=== PATIENT | female | born 1960 | race Two or more races ===

== ENCOUNTER 2019-11-20 19:40 | Inpatient (IN) | payer BC ==
--- NOTE | 2019-11-20 19:44 | PDOC ---
History of Present Illness - General Chief Complaint: Pain Stated Complaint: TWISTED ANKLE WHILE HIKING Time Seen by Provider: 11/20/19 19:43 - History of Present Illness Initial Comments: This 59-year-old woman with a history of HLD/hypothyroidism presents with right ankle injury. Approximately 2 hours prior to presentation, she slipped while hiking down a hill twisting her right ankle. After this, she has had swelling and marked pain in the right ankle on weightbearing. No previous history of injury or other issue in the right ankle. Patient denies any other complaints. The patient took 400 mg ibuprofen prior to presentation in the ER. She denies paresthesias/numbness in right lower extremity. Patient and her live in [facility] ([facility] They are visiting the area to see their daughter who is third-year medical student Medications as noted below No known allergies Non-smoker/no daily alcohol or other recreational drug use Past History - Medical History Allergies/Adverse Reactions: Allergies Allergy/AdvReac Type Severity Reaction Status Date / Time No Known Allergies Allergy Unverified 11/20/19 19:45 Home Medications: Ambulatory Orders Levothyroxine [Synthroid -] 100 mcg PO DAILY 11/20/19 Review of Systems - Review of Systems Able to Perform ROS?: Yes Comments:: 12 point review of systems is negative except for what is noted in the history of present illness *Physical Exam - Physical Exam GENERAL: Adult female, alert and oriented x3, in mild distress secondary to right ankle pain HEAD: Normal with no signs of trauma. EYES: PERRLA, EOMI, sclera anicteric, conjunctiva clear. ENT: Ears normal, nares patent, oropharynx clear without exudates. Moist mucous membranes. NECK: Normal range of motion, supple without lymphadenopathy, JVD, or masses. LUNGS: Breath sounds equal, clear to auscultation bilaterally. No wheezes, and no crackles. HEART:Regular rate and rhythm, normal S1 and S2 without murmur, rub or gallop. ABDOMEN:.normal bowel sounds No guarding,tenderness or rebound.No masses No distention. EXTREMITIES: Right lower extremityankle: Moderate edema bilateral malleoli with faint ecchymosis distal to the medial malleolus Moderate generalized tenderness of bilateral malleoli No knee, lower leg or foot edema, tenderness or deformity; motor and sensory functioning of foot intact Strongly palpable dorsalis pedis pulse palpable at midfoot Remainder of the extremity exam is normal NEUROLOGICAL: Cranial nerves II through XII grossly intact. Normal speech. No focal neurological deficits. ED Treatment Course - LABORATORY CBC & Chemistry Diagram: 11/20/19 23:44 11/20/19 23:26 Medical Decision Making - Medical Decision Making 11/20/19 21:41 Right ankle x-ray performed. Preliminary interpretation by Imaging automation control technician (Dr. Torres): Trimalleolar fracture with minimally displaced intra-articular fracture of the medial malleolus, mildly displaced spiral fracture of the distal fibula above the level of the ankle mortise and a minimally displaced intra-articular fracture of the posterior distal tibia consistent with a trimalleolar fracture. There is moderate ankle edema Case discussed with Dr. Plata on-call for orthopedic surgery by telephone Dr. Plata also discussed options for treatment by telephone with patient's hus band and her daughter 11/21/19 00:31 The patient has elected to be admitted. Although ORIF surgery is tentatively planned for tomorrow at [facility], there are no available beds there. Therefore, the patient will be admitted to [facility] for pain control and further care. [facility] discussed with [facility]. He will admit patient [facility] bed here at [facility]. Twelve-lead electrocardiogram performed: Preliminary interpretation by menormal sinus rhythm at 83 bpm; there is left axis deviation and mild left atrial enlargement; no acute ST or T wave abnormality; intervals and waveforms are otherwise normal. No evidence of acute cardiac arrhythmia Laboratory evaluation (CBC/chemistry profile/INR) are essentially normal Ortho-Glass splint applied: Posterior leg splint followed by sugar tong splint applied to right lower leg and attached with Josh wraps. Neurovascular fu nctioning intact after placement of splint. Ice bag applied to anterior ankle and lower leg elevated Patient transported in stable condition to the admission bed Discharge - Discharge Information Problems reviewed: Yes Clinical Impression/Diagnosis: Trimalleolar fracture of ankle, closed Qualifiers: Encounter type: initial encounter Laterality: right Qualified Code(s): S82.851A - Displaced trimalleolar fracture of right lower leg, initial encounter for closed fracture Condition: Stable - Admission Yes - Follow up/Referral - Patient Discharge Instructions - Post Discharge Activity
--- OUTSIDE RECORDS SUMMARY | 2019-11-20 20:02 | XMS ---
:1960 Author Organization [facility] Support Name Relationship Address Phone [facility] Unavailable [address] [place] [address] MARIELY GOLDSTEIN [address], [place] [address] Re-disclosure Warning The records that you are about to access may contain information from federally- assisted alcohol or drug abuse programs. If such information is present, then the following federally mandated warning applies: This information has been disclosed to you from records protected by federal confidentiality rules (42 CFR part 2). The federal rules prohibit you from making any further disclosure of this information unless further disclosure is expressly permitted by the written consent of the person to whom it pertains or as otherwise permitted by 42 CFR part 2. A general authorization for the release of medical or other information is NOT sufficient for this purpose. The Federal rules restrict any use of the information to criminally investigate or prosecute any alcohol or drug abuse patient.The records that you are about to access may contain highly sensitive health information, the redisclosure of which is protected by Article 27-F of the [facility] Public Health law. If you continue you may haveaccess to information: Regarding HIV / AIDS; Provided by facilities licensed or operated by the [facility] Office of Mental Health; or Provided by the [facility] Office for People With Developmental Disabilities. If such information is present, then the following [facility] mandated warning applies: This information has been disclosed to you from confidential records which are protected by state law. State law prohibits you from making any further disclosure of this information without the specific written consent of the person to whom it pertains, or as otherwise permitted by law. Any unauthorized further disclosure in violation of state law may result in a fine or longterm sentence or both. A general authorization for the release of medical or other information is NOT sufficient authorization for further disclosure. Insurance Providers Payer name Policy type Policy ID Covered Covered green party's Policy P sarah beth / Coverage green party ID relationship to Sims Inf ormation type sims SELF PAY SP INSURANCE
[2019-11-20] MEDS ORDERED: ONDANSETRON 4 MG/2 ML VIAL IVPUSH PRN (23:39)
[2019-11-20] MEDS ORDERED: ACETAMINOPHEN 500 MG TABLET (FP) PO PRN (23:39)
[2019-11-20] MEDS ORDERED: oxyCODONE HCL 5 MG TABLET PO PRN (23:39)
--- NOTE | 2019-11-20 23:42 | HP ---
CHIEF COMPLAINT: Ankle Pain PCP: HISTORY OF PRESENT ILLNESS: 59 yo f w/ PMH HLD, hypothyroidism who presentes to the ED c/o right ankle pain after slipping while hiking. Pt slipped while hiking down a hill and twisted her right ankle. Pt endorsed swelling and marked pain after the injury with minimal weight bearing capabilities. Pt denies paresthesias or numbness. Patient and her live [facility] They are visiting the area to see their daughter who is third-year medical student. XR in the ED showed a malleolar fracture. Dr. Plata was consulted from the ED and is aware of the patient. He will assess the patient in the AM for potential surgery. Recent Travel: PAST MEDICAL HISTORY: see HPI PAST SURGICAL HISTORY: see HPI Social History: Smoking: denies Alcohol: denies Drugs: denies Allergies No Known Allergies Allergy (Unverified 11/20/19 19:45) HOME MEDICATIONS: Home Medications Medication Instructions Recorded Levothyroxine [Synthroid -] 100 mcg PO DAILY 11/20/19 REVIEW OF SYSTEMS negative except for HPI PHYSICAL EXAMINATION Vital Signs - 24 hr 11/20/19 19:43 Temperature 99.5 F Pulse Rate 86 Respiratory 16 Rate Blood Pressure 128/70 O2 Sat by Pulse 100 Oximetry (%) ASSESSMENT/PLAN: 59 yo f w/ PMH HLD, hypothyroidism who presentes to the ED c/o right ankle pain after slipping while hiking. Pt slipped while hiking down a hill and twisted her right ankle. #right malleolar fx -ortho onboard, will assess in AM -ankle splinted in the ED -pain control with tylenol, oxycodone and morphine -avoid nsaids -NPO past midnight in the event of surgery Family Medical History Family History: Denies Visit type - Emergency Visit Emergency Visit: Yes ED Registration Date: 11/21/19 Care time: The patient presented to the Emergency Department on the above date and was hospitalized for further evaluation of their emergent condition. - New Patient This patient is new to me today: Yes Date on this admission: 11/21/19 - Critical Care Critical Care patient: No
[2019-11-20] MEDS ORDERED: SODIUM CHLORIDE 1,000 ML IV SCH (23:45)
[2019-11-20 23:48] LABS: BASO % 0.6 % (0-2.0); HEMATOCRIT 38.9 % (32.4-45.2); HEMOGLOBIN 12.8 GM/dl (10.7-15.3); LYMPH % 17.9 % (8-40); MCH 31.1 pg (25.7-33.7); MCHC 32.9 g/dl (32.0-36.0); MEAN CELL VOLUME 94.5 fl (80-96); MEAN PLT VOLUME 7.8 fl (7.5-11.1); MONO % 6.9 % (3.8-10.2); NEUT % 73.6 % (42.8-82.8); PLATELET COUNT 325 K/MM3 (134-434); RBC 4.12 M/mm3 (3.60-5.2); RDW 12.1 % (11.6-15.6); WHITE BLOOD COUNT 7.7 K/mm3 (4.0-10.8)
[2019-11-21 00:12] LABS: BILIRUBIN,TOTAL 0.7 mg/dl (0.2-1); CALCIUM 9.2 mg/dl (8.5-10); CREATININE 0.7 mg/dl (0.55-1.3); POTASSIUM 3.6 mmol/L (3.5-5.1); TOT PROT 7.5 g/dl (6.4-8.2)
[2019-11-21 00:18] LABS: INR 1.1 (0.82-1.09); PROTHROMBIN TIME (PATIENT) 12.3 SEC (10.2-13.0)
[2019-11-21 01:28] VITALS: BMI 27.8
[2019-11-21] MEDS: MORPHINE SULFATE 2 MG/ML VIAL IVPUSH PRN ×3 (03:13→13:37)
[2019-11-21] MEDS ORDERED: LEVOTHYROXINE NA 100 MCG TABLET (FP) PO SCH (07:00)
[2019-11-21 08:10] LABS: HEMOGLOBIN 11.3 GM/dl (10.7-15.3); MCH 31.4 pg (25.7-33.7); MCHC 33.2 g/dl (32.0-36.0); MEAN CELL VOLUME 94.4 fl (80-96); PLATELET COUNT 267 K/MM3 (134-434); RDW 11.8 % (11.6-15.6); WHITE BLOOD COUNT 5.4 K/mm3 (4.0-10.8)
[2019-11-21 08:34] LABS: ALBUMIN 3.3 g/dl (3.4-5.0); BILIRUBIN,TOTAL 0.7 mg/dl (0.2-1); CALCIUM 8.8 mg/dl (8.5-10); CREATININE 0.6 mg/dl (0.55-1.3); MAGNESIUM 2.1 mg/dL (1.8-2.4); PHOSPHOROUS 3.8 mg/dl (2.5-4.9); POTASSIUM 3.6 mmol/L (3.5-5.1); TOT PROT 6.2 g/dl (6.4-8.2)
--- NOTE | 2019-11-21 09:41 | CONSULT ---
Consult - text type - Consultation Consultation Note: ORTHOPEDIC SURGERY CONSULTATION NOTE Department of Orthopedic Surgery HISTORY OF PRESENT ILLNESS Ms. Leal is a 59 year old female with a past medical history of HLD/hypothyroidism presents with right ankle injury. Approximately 2 hours prior to presentation, she slipped while hiking down a hill twisting her right ankle. After this, she has had swelling and marked pain in the right ankle on weight-bearing. No previous history of injury or other issue in the right ankle. The orthopedic service was consulted for an ankle fracture. The patient notes pain and swelling in the right ankle worse with movement. Denies any other injuries. Denies numbness, tingling or other constitutional complaints. Denies tobacco use, drug use, alcohol abuse. The patient lives with family and uses noassistive devices at baseline. FAMILY HISTORY non-contributory REVIEW OF SYMPTOMS A twelve-point review of systems was performed and was negative except as noted in HPI. PHYSICAL EXAM Constitutional: Alert and oriented to person, place, and time. Appears well- developed and well-nourished. No acute distress, appropriate mood and affect. Right Upper Extremity: Skin warm, dry, and intact; no lesions, rashes or ulcers noted. Muscle mass equal and symmetric to contralateral side. No atrophy noted. No masses or effusions noted. No tenderness to palpation all joints; nontender throughout rest of extremity. Full passive and active ROM, free from pain. Joints stable with no pathologic laxity. M/R/U/MSK/AX motor intact; SILT distally; 2+ radial pulses; Cap refill brisk. Tone and reflexes normal. Left Upper Extremity: Skin warm, dry, and intact; no lesions, rashes or ulcers noted. Muscle mass equal and symmetric to contralateral side. No atrophy noted. No masses or effusions noted. No tenderness to palpation all joints; nontender throughout rest of extremity. Full passive and active ROM, free from pain. Joints stable with no pathologic laxity. M/R/U/MSK/AX motor intact; SILT distally; 2+ radial pulses; Cap refill brisk. Tone and reflexes normal. Right Lower Extremity: Skin warm, dry, and intact; + fracture blisters noted postero-laterally and anteriorly. Swelling and ecchymosis noted over the lateral and posterior aspects of the ankle. Muscle mass equal and symmetric to contralateral side. No atrophy noted. No masses or effusions noted. Tender to palpation over the lateral and medial aspects of the ankle; nontender throughout rest of extremity. No cords or calf tenderness; No significant calf edema. LROM of the ankle secondary to pain and swelling. Full passive and active ROM of the hip knee and toes, free from pain. Joints stable with no pathologic laxity. EHL/TA/GS motor intact; SILT distally; 2+ DP pulses; Cap refill brisk. Tone and reflexes normal. Left Lower Extremity: Skin warm, dry, and intact; no lesions, rashes or ulcers noted. Muscle mass equal and symmetric to contralateral side. No atrophy noted. No masses or effusions noted. No tenderness to palpation all joints; nontender throughout rest of extremity. No cords or calf tenderness; No significant calf/ ankle edema. Full passive and active ROM, free from pain. Joints stable with no pathologic laxity. EHL/TA/GS motor intact; SILT distally; 2+ DP pulses; Cap refill brisk. Tone and reflexes normal. Intake & Output 11/19/19 11/20/19 11/21/19 23:59 23:59 23:59 Intake Total 450 Balance 450 Intake: IV 450 Normal Saline - 1,000 ml 450 @ 75 mls/hr IV ASDIR GABBY Rx#:[id number] Other: Voiding Method Bedpan Weight 154 lb 166 lb 15.477 oz Height 5 ft 5 in 5 ft 5 in Body Mass Index (BMI) 25.6 27.8 Weight Measurement Method Patient Lift Scale Weight Measurement Method Est/Stated by Patient Active Medications Generic Name Dose Route Start Last Admin Trade Name Freq PRN Reason Stop Dose Admin Acetaminophen 1,000 mg 11/20/19 23:39 Tylenol - PO Q6H PRN PAIN LEVEL 1 - 3 Docusate Sodium 100 mg 11/21/19 10:00 11/21/19 09:34 Colace - PO Not Given DAILY GABBY Sodium Chloride 1,000 mls @ 75 mls/hr 11/20/19 23:45 11/21/19 01:15 Normal Saline - IV 11/21/19 13:04 75 mls/hr ASDIR GABBY Administration Levothyroxine Sodium 100 mcg 11/21/19 07:00 11/21/19 07:05 Synthroid - PO 100 mcg ACBK GABBY Administration Morphine Sulfate 2 mg 11/20/19 23:40 11/21/19 09:27 Morphine Sulfate IVPUSH 2 mg Q4H PRN Administration PAIN LEVEL 7 - 10 Ondansetron HCl 4 mg 11/20/19 23:39 Zofran Injection IVPUSH Q4H PRN NAUSEA AND/OR VOMITING Oxycodone HCl 5 mg 11/20/19 23:39 11/21/19 01:13 Roxicodone - PO 5 mg Q3H PRN Administration PAIN LEVEL 4 - 6 Vital Signs (last) Temp Pulse Resp BP Pulse Ox 98.2 F 78 17 109/62 96 11/21/19 09:16 11/21/19 09:16 11/21/19 09:16 11/21/19 09:16 11/21/19 09:16 Laboratory (coagulation) PT with INR 12.3 SEC (10.2-13.0) 11/20/19 23:26 Laboratory 11/21/19 08:01 11/21/19 06:00 IMAGING I personally reviewed all radiographs, CT, and other imaging. They demonstrate a right tri-malleolar ankle fracture. ASSESSMENT AND PLAN Ms. Leal is a 59 year old female presenting status post mechanical fall with a right sided tri-malleolar fracture. We have reviewed the imaging and clinical findings in detail, as well as their potential implications. This is an operative fracture. The patient was placed in a well padded splint after a slight reduction maneuver was performed. NPO except for medications NWB RLE CBC/BMP/Coags Type and Screen LR 84cc/hr while NPO EKG CXR UA Patient to be transferred to [facility] for surgical intervention this afternoon. - Needs medical clearance for surgery All questions were answered. Thank you for involving our team in the care of this patient. Please call us with questions
[2019-11-21 09:55] LABS: EPITHELIAL CELLS FEW /hpf
[2019-11-21] MEDS ORDERED: DOCUSATE SODIUM 100 MG CAPSULE (FP) PO SCH (10:00)
--- NOTE | 2019-11-21 10:34 | PN ---
Progress Note, Physician Chief Complaint: Right ankle fracture History of Present Illness: 59 yo f w/ PMH HLD, hypothyroidism and hyperlipidemia who presents to the ED c/o right ankle pain after slipping while hiking. Patient and her live in [facility] ([facility] They are visiting the area to see their daughter who is third-year medical student. R foot XR in the ED showed a Right malleolar fracture. Currently in NAD, denies any pain. Labs unremarkable - Current Medication List Current Medications: Active Medications Acetaminophen (Tylenol -) 1,000 mg PO Q6H PRN PRN Reason: PAIN LEVEL 1 - 3 Docusate Sodium (Colace -) 100 mg PO DAILY [facility] Last Admin: 11/21/19 09:34 Dose: Not Given Documented by: Lactated Ringer's (Lactated Ringers Solution) 1,000 ml in 1,000 mls @ 75 mls/hr IV ASDIR GABBY Levothyroxine Sodium (Synthroid -) 100 mcg PO ACBK [facility] Last Admin: 11/21/19 07:05 Dose: 100 mcg Documented by: Morphine Sulfate (Morphine Sulfate) 2 mg IVPUSH Q4H PRN PRN Reason: PAIN LEVEL 7 - 10 Last Admin: 11/21/19 09:27 Dose: 2 mg Documented by: Ondansetron HCl (Zofran Injection) 4 mg IVPUSH Q4H PRN PRN Reason: NAUSEA AND/OR VOMITING Oxycodone HCl (Roxicodone -) 5 mg PO Q3H PRN PRN Reason: PAIN LEVEL 4 - 6 Last Admin: 11/21/19 01:13 Dose: 5 mg Documented by: - Objective Vital Signs: Vital Signs Temperature 98.2 F 11/21/19 09:16 Pulse Rate 78 11/21/19 09:16 Respiratory Rate 17 11/21/19 09:16 Blood Pressure 109/62 11/21/19 09:16 O2 Sat by Pulse Oximetry (%) 96 11/21/19 09:16 Constitutional: Yes: Well Nourished, No Distress, Calm Cardiovascular: Yes: Regular Rate and Rhythm Respiratory: Yes: Regular, CTA Bilaterally Gastrointestinal: Yes: Normal Bowel Sounds, Soft Genitourinary: Yes: WNL Musculoskeletal: Yes: Muscle Weakness, Other (Right LE stabilizer) Extremities: Yes: WNL Edema: No Peripheral Pulses WNL: Yes Wound/Incision: Yes: Dressing Dry and Intact (Right LE stabilizer) Neurological: Yes: Alert, Oriented Psychiatric: Yes: Alert, Oriented Labs: CBC, BMP 11/21/19 08:01 11/21/19 06:00 INR, PTT INR 1.10 (0.82-1.09) 11/20/19 23:26 Problem List - Problems (1) Trimalleolar fracture of ankle, closed Assessment/Plan: -Seen by orthopedic surgery -Maintain NPO -Continue IVF -Labs unremarkable -Transfer to [facility] -Pt is medically cleared with low OR risks Problems reviewed: Yes Code(s): S82.853A - DISPLACED TRIMALLEOLAR FRACTURE OF UNSP LOWER LEG, INIT Qualifiers: Encounter type: initial encounter Laterality: right Qualified Code(s): S82.851A - Displaced trimalleolar fracture of right lower leg, initial encounter for closed fracture (2) Hypothyroidism Assessment/Plan: -Will resume Levothryoxine 100 mcg po daily post op Problems reviewed: Yes Code(s): E03.9 - HYPOTHYROIDISM, UNSPECIFIED (3) Hyperlipidemia Assessment/Plan: -Will resume atrovastatin 10 mg po HS post op Problems reviewed: Yes Code(s): E78.5 - HYPERLIPIDEMIA, UNSPECIFIED Assessment/Plan See problem list Spoke to daughter Jessica and
[2019-11-21] MEDS ORDERED: LACTATED RINGERS SOLUTION 1,000 ML/1,000 ML INFUS.BAG IV SCH (10:45)
[2019-11-21] MEDS ORDERED: ROPIVACAINE HCL 0.5% 30ML VIAL ONE (14:37)
[2019-11-21] MEDS ORDERED: PROPOFOL 20 ML ONE ×2 (14:47→16:59)
[2019-11-21] MEDS ORDERED: MIDAZOLAM HCL 2 MG/2 ML SINGLE DOSE VIAL ONE ×2 (14:47)
[2019-11-21] MEDS ORDERED: ceFAZolin SODIUM 1 GM VIAL IVPB ONE (16:35)
[2019-11-21] MEDS ORDERED: ceFAZolin SODIUM 1 GM VIAL ONE (16:37)
--- NOTE | 2019-11-21 19:09 | OPR ---
DATE OF OPERATION: 11/21/2019 TITLE OF OPERATION: RIGHT ANKLE ORIF PREOPERATIVE DIAGNOSIS: RIGHT ANKLE TRIMALLEOLAR FRACTURE POSTOPERATIVE DIAGNOSIS: RIGHT ANKLE TRIMALLEOLAR FRACTURE SURGEON: Rosalino Plata DO BACKWINDER: Andrzej Britt DO ANESTHESIA: Spinal anesthesia; Regional block SPECIMEN: None PROSTHETIC DEVICE/IMPLANT: Arthrex 4 hole distal fibula locking plate; 4 distal locking screws, 3 proximal cortical screws; Two 40mm compression screws COMPLICATIONS: none EBL: 20mL TOURNIQUET TIME: 79 Mins INDICATIONS FOR SURGERY: Ms. Leal is a 59 year old female who presented in the preoperative setting with a chief complaint of right ankle fracture. Based on their pre-injury level of activity, surgical treatment was discussed. The risks and benefits of surgery a nd anesthesia were discussed in detail including but not limited to AL, , continued pain, bleeding, infection, scarring, damage to vessels and nerves, blood clot, failure to obtain the desired result, failure to heal, malunion failure to return to sport or work. Understanding the risks and benefits, Ms. Leal opted to proceed with surgical management. SURGEON'S NARRATIVE: The patient was seen in the preoperative area. Her right side was marked for surgery and the consent was reviewed and signed. Anesthesia gave her a popliteal block in the holding area. She was then brought back to the operating room. She was transferred to the OR table. All bony prominences were well padded. Anesthesia was induced. A time-out was held and all team members agreed on the operative side and planned procedure. Preoperative prophylactic antibiotics were indicated and 2g of Ancef were given prior to and within one hour of any incisions. Sequential compression devices were placed on the contralateral e xtremity for the duration of the surgery as part of comprehensive DVT prophylaxis protocol consisting of intraoperative SCD, early post operative mobilization, and post operative ASA 325 BID for chemoprophylaxsis. A thigh tourniquet was placed. The patient was positioned with the use of multiple sheets under the hip. We again verified that all bony prominences were well padded. The leg was then prepped and draped in the usual sterile fashion. The ankle was exanguinated with an Esmarch and the tourniquet was inflated. It remained inflated for 79 minutes. Attention was turned to the lateral ankle. An incision was marked out along the lateral fibula for a direct lateral approach based off of the level of the fracture. The skin was incised sharply with a 15-blade, then a metzenbaum scissor was used to dissect the deeper tissue. SPN was not in the operative field. The fracture was identified and the fracture hematoma and ends were cleaned using a dental pick and currette with care not to disrupt the fragments to later webber them together. It was a comminuted fracture. The fracture was copiously irrigated. Through manual reduction, a lion jaw clamp was used to restore fracture alignment and rotation. Fluoroscopy confirmed the reduction of the fracture. A lag screw was then placed by first drilling the anterior cortex with a 2.7mm drill perpendicular to the obllique fracture, followed by drilling the posterior cortex with a 2.0mm drill. I then measured the length. The lag screw measured 20 mm. I placed the screw and there was excellent compression of the fracture. Attention was therefore turned to the plate. A 4-hole distal fibula locking plate was utilized for fixation. It was placed on the lateral fibula and correct position was verified using fluoroscopy. The plate was then placed and held in place with 4 locking screws distally, and 3 cortical screws proximally. Fluoroscopy was employed throughout plate application to verify correct positioning. Attention was then turned to the medial malleolar fracture. An incision was marked out along the distal medial malleolus. The skin was incised sharply with a 15-blade, then a metzenbaum scissor was used to dissect the deeper tissue. Saphenous nerve and vein were identified and retracted anteriorly. The medial malleollus fracture was identified and the fracture hematoma and ends were cleaned using a dental pick and currette with care not to disrupt the fragments to later webber them together. The fracture was copiously irrigated. Through manual reduction, a pointed reduction clamp was used to restore fracture alignment and rotation. Two 40mm compression screws were placed in parallel fashion into the medial malleollus which provided great compression of the fracture site and excellent reduction. Fluoroscopy confirmed the reduction of the medial malleollus fracture. Attention was then turned to evaluation of syndesmotic stability. A mortise X- ray was obtained and a stress examination using dorsiflexion and external rotation to evaluate the integrity of the ankle ligaments was performed. Under live fluoroscopy, syndesmotic and medial clear space integrity were evaluated, and we found no widening of the medial clear space. Biplanar fluoroscopy was employed throughout the case to confirm correct placement of all metal hardware. Attention was then turned to closure. The incision was copiously irrigated with sterile saline. Deep tissue was closed with 2-0 vicryl, and the skin was closed with 3-0 nylon in mattress form. At closure, all needle and sponge counts were correct. The toes were warm and well perfused at the end of the case. Xeroform, 4x4's and sterile-soft webril was applied. Then a standard AO splint with posterior splint and U-shaped splint was applied. Ms. Leal was then awoken and brought to the postoperative care unit in stable condition. There were no complications. I was scrubbed the entire case. There was no qualified hearing aid assistant or resident to assist with the case, so Dr. Andrzej Britt DO served as financial administrative assistant throughout the case. POST-OPERATIVE PLAN: - The post-operative dressing should remain in place until follow up in our office in 10-14 days. The dressing should be kept clean/dry. - The leg should be elevated above the level of the heart as much as possible to decrease swelling and improve wound healing. - Ice to the ankle continuously - Transition to oral pain medications before discharge - Comprehensive DVT ppx with SCD on contralateral leg, early postoperative mobilization -Aspirin 325mg BID for 6 weeks for chemoprophylaxis -Ancef 2 gm Q8 hours x 2 more doses. - Physical therapy: Non-weight bearing right lower extremity - Dispo Planning Please call us at [phone] if you have any questions. Rosalino Plata DO Orthopedic Surgery
[2019-11-21] MEDS ORDERED: ONDANSETRON 4 MG/2 ML VIAL IVPUSH PRN (19:48)
[2019-11-21] MEDS: LACTATED RINGERS SOLUTION 1,000 ML/1,000 ML INFUS.BAG IV SCH (20:15)
[2019-11-21] MEDS: oxyCODONE HCL 5 MG TABLET PO PRN ×2 (21:02→23:40)
--- NOTE | 2019-11-21 21:48 | EKG ---
Test Reason : Blood Pressure : / mmHG Vent. Rate : 083 BPM Atrial Rate : 083 BPM P-R Int : 158 ms QRS Dur : 076 ms QT Int : 376 ms P-R-T Axes : 071 -40 023 degrees QTc Int : 441 ms NORMAL SINUS RHYTHM POSSIBLE LEFT ATRIAL ENLARGEMENT LEFT AXIS DEVIATION ABNORMAL ECG NO PREVIOUS ECGS AVAILABLE Confirmed by Tiana Strong ([id number]) on 11/21/2019 9:48:33 PM Referred By: DR BRYANT Confirmed By:Tiana Strong
[2019-11-22] MEDS: CEFAZOLIN 2 GM/D5W 2 GM/50 ML ML IVPB SCH ×2 (01:10→09:06)
[2019-11-22] MEDS: traMADol HCL 50 MG TABLET PO PRN ×2 (01:14→06:04)
[2019-11-22] MEDS: oxyCODONE HCL 5 MG TABLET PO PRN ×3 (04:58→13:43)
[2019-11-22] MEDS: LACTATED RINGERS SOLUTION 1,000 ML/1,000 ML INFUS.BAG IV SCH (06:09)
[2019-11-22] MEDS ORDERED: ACETAMINOPHEN 1000 MG/100 ML VIAL (NON FORMULARY) IVPB ONE (06:45)
[2019-11-22] MEDS ORDERED: LEVOTHYROXINE NA 100 MCG TABLET (FP) PO SCH (07:00)
--- NOTE | 2019-11-22 08:09 | PN ---
Progress Note, Physician - Current Medication List Current Medications: Active Medications Aspirin (Ecotrin -) 325 mg PO BID [facility] Docusate Sodium (Colace -) 100 mg PO DAILY [facility] Fentanyl (Sublimaze Injection -) 50 mcg IVPUSH [id number] PRN PRN Reason: PAIN-PACU ORDER X 4 DOSES ONLY Cefazolin Sodium/Dextrose (Ancef 2 Gm Premixed Ivpb -) 2 gm in 50 mls @ 100 mls/hr IVPB Q8H [facility] Stop: 11/22/19 08:59 Last Admin: 11/22/19 01:10 Dose: 100 mls/hr Documented by: Lactated Ringer's (Lactated Ringers Solution) 1,000 ml in 1,000 mls @ 75 mls/hr IV ASDIR [facility] Last Admin: 11/22/19 06:09 Dose: 75 mls/hr Documented by: Levothyroxine Sodium (Synthroid -) 100 mcg PO ACBK [facility] Last Admin: 11/22/19 06:06 Dose: 100 mcg Documented by: Ondansetron HCl (Zofran Injection) 4 mg IVPUSH Q4H PRN PRN Reason: NAUSEA AND/OR VOMITING Oxycodone HCl (Roxicodone -) 5 mg PO Q3H PRN PRN Reason: PAIN LEVEL 4-6 Last Admin: 11/21/19 21:02 Dose: 5 mg Documented by: Oxycodone HCl (Roxicodone -) 10 mg PO Q3H PRN PRN Reason: PAIN LEVEL 7-10 Last Admin: 11/22/19 04:58 Dose: 10 mg Documented by: Tramadol HCl (Ultram -) 50 mg PO Q3H PRN PRN Reason: PAIN LEVEL 1-3 Last Admin: 11/22/19 06:04 Dose: 50 mg Documented by: - Objective Vital Signs: Vital Signs Temperature 98.1 F 11/22/19 06:00 Pulse Rate 87 11/22/19 06:00 Respiratory Rate 18 11/22/19 06:00 Blood Pressure 121/69 11/22/19 06:00 O2 Sat by Pulse Oximetry (%) 95 11/22/19 06:00 Labs: INR, PTT INR 1.10 (0.82-1.09) 11/20/19 23:26
[2019-11-22 08:16] LABS: BASO % 0.4 % (0-2.0); EOS % 0.6 % (0-4.5); HEMATOCRIT 32.6 % (32.4-45.2); HEMOGLOBIN 11.1 GM/dL (10.7-15.3); LYMPH % 15.9 % (8-40); MCH 31.3 pg (25.7-33.7); MEAN CELL VOLUME 92.1 fl (80-96); MONO % 10.8 % (3.8-10.2); NEUT % 72.3 % (42.8-82.8); PLATELET COUNT 227 K/MM3 (134-434); RBC 3.54 M/mm3 (3.60-5.2); RDW 12.5 % (11.6-15.6); WHITE BLOOD COUNT 6.9 K/mm3 (4.0-10.0)
[2019-11-22 08:45] LABS: BILIRUBIN,TOTAL 0.6 mg/dL (0.2-1); CALCIUM 8.5 mg/dL (8.5-10.1); CREATININE 0.6 mg/dL (0.55-1.3); POTASSIUM 3.7 mmol/L (3.5-5.1); TOT PROT 6.1 g/dl (6.4-8.2)
[2019-11-22] MEDS ORDERED: ASPIRIN 325 MG ENTERIC COATED TABLET (FP) PO SCH (10:00)
[2019-11-22] MEDS ORDERED: DOCUSATE SODIUM 100 MG CAPSULE (FP) PO SCH (10:00)
--- NOTE | 2019-11-22 11:39 | PN ---
Progress Note (short form) - Note Progress Note: ORTHOPEDIC SURGERY PROGRESS NOTE Department of Orthopedic Surgery SUBJECTIVE No acute events overnight. No complaints currently. Denies chest pain, shortness of breath, or calf pain. No nausea or vomiting. Tolerating oral intake. Pain control difficult overnight, but improving. PHYSICAL EXAMINATION General: Alert, oriented, cooperative and no distress. Right Lower Extremity: Dressing/splint intact; Skin intact, no lesions, rashes or ulcers noted. Muscle mass equal and symmetric to contralateral side. No atrophy noted. No masses or effusions noted. No tenderness to palpation. Full passive and active ROM of the knee and hip and toes, free from pain. EHL/FHL motor intact; SILT distally; Cap refill brisk. DVT Exam: No evidence of DVT seen on physical exam; Intake & Output 11/20/19 11/21/19 11/22/19 23:59 23:59 23:59 Intake Total 790 1050 Output Total 0 Balance 790 1050 Intake: IV 550 900 LACTATED RINGERS SOLUTION 900 1,000 ml In 1,000 ml @ 75 mls/hr IV ASDIR [facility] Rx #:[id number] Normal Saline - 1,000 ml 450 @ 75 mls/hr IV ASDIR GABBY Rx#:[id number] IVPB 150 Oral 240 Output: Urine 0 Other: Voiding Method Bedpan Bedpan # Unmeasured Voids Void 1 Weight 154 lb 166 lb 15.477 oz Height 5 ft 5 in 5 ft 5 in Body Mass Index (BMI) 25.6 27.8 Weight Measurement Method Patient Lift Scale Weight Measurement Method Est/Stated by Patient Active Medications Generic Name Dose Route Start Last Admin Trade Name Freq PRN Reason Stop Dose Admin Aspirin 325 mg 11/22/19 10:00 11/22/19 09:52 Ecotrin - PO 325 mg BID [facility] Administration Docusate Sodium 100 mg 11/22/19 10:00 11/22/19 09:52 Colace - PO 100 mg DAILY [facility] Administration Fentanyl 50 mcg 11/21/19 19:12 Sublimaze Injection - IVPUSH [id number] PRN PAIN-PACU ORDER X 4 DOSES ONLY Lactated Ringer's 1,000 ml in 1,000 mls @ 75 mls/hr 11/21/19 19:48 11/22/19 06:09 Lactated Ringers Solution IV 75 mls/hr ASDIR [facility] Administration Levothyroxine Sodium 100 mcg 11/22/19 07:00 11/22/19 06:06 Synthroid - PO 100 mcg ACBK [facility] Administration Ondansetron HCl 4 mg 11/21/19 19:48 Zofran Injection IVPUSH Q4H PRN NAUSEA AND/OR VOMITING Oxycodone HCl 5 mg 11/21/19 19:12 11/22/19 09:51 Roxicodone - PO 5 mg Q3H PRN Administration PAIN LEVEL 4-6 Oxycodone HCl 10 mg 11/21/19 19:12 11/22/19 04:58 Roxicodone - PO 10 mg Q3H PRN Administration PAIN LEVEL 7-10 Tramadol HCl 50 mg 11/21/19 19:12 11/22/19 06:04 Ultram - PO 50 mg Q3H PRN Administration PAIN LEVEL 1-3 Vital Signs (last) Temp Pulse Resp BP Pulse Ox 98.1 F 87 18 121/69 95 11/22/19 06:00 11/22/19 06:00 11/22/19 06:00 11/22/19 06:00 11/22/19 10:00 Laboratory (coagulation) PT with INR 12.3 SEC (10.2-13.0) 11/20/19 23:26 Laboratory 11/22/19 06:12 11/22/19 06:12 ASSESSMENT AND PLAN Kina Leal is a 59 year old female s/p Right ankle ORIF POD 1, doing well. - Pain control: Transition to oral pain medications, minimize narcotic use - DVT prophylaxis (ASA 325mg BID x 6 weeks) - Ice/Elevation RLE - Elevate HOB, encourage oral intake - Appreciate medical management (Nutrition optimization, decubitus precautions heel/sacrum) - PT daily; NWB RLE - Dispo planning Patient to follow up in my office on post op day 14 for wound check and suture removal. Patient to call for appointment.
--- NOTE | 2019-11-22 12:56 | DS ---
Physical Examination Vital Signs: Vital Signs Temperature 98.1 F 11/22/19 06:00 Pulse Rate 87 11/22/19 06:00 Respiratory Rate 18 11/22/19 06:00 Blood Pressure 121/69 11/22/19 06:00 O2 Sat by Pulse Oximetry (%) 95 11/22/19 10:00 Findings/Remarks: S/[ ANKLE FX/REPAIR AWAKE ALERT FAMILY BEDSIDE Constitutional: Yes: Mild Distress Eyes: Yes: WNL HENT: Yes: WNL Neck: Yes: WNL Cardiovascular: Yes: WNL Respiratory: Yes: WNL Gastrointestinal: Yes: WNL Renal/: Yes: WNL Musculoskeletal: Yes: Muscle Pain Extremities: Yes: Deformity Edema: No Wound/Incision: Yes: Dressing Dry and Intact Labs: CBC, BMP 11/22/19 06:12 11/22/19 06:12 Discharge Summary Problems reviewed: Yes Reason For Visit: TWISTED ANKLE WHILE HIKING Current Active Problems Hyperlipidemia (Acute) Hypothyroidism (Acute) Trimalleolar fracture of ankle, closed (Acute) Procedures: Principal: ORIF RIGHT ANKLE Hospital Course: ADMITTED FOR RIGHT ANKLE SURGERY PAIN CONTROL Plan of Treatment: FOLLOW UP WITH ORTHOPEDICS Condition: Stable - Instructions Diet, Activity, Other Instructions: SEE YOUR DOCTOR IN 2-3 WEEKS ORTHOPEDIC FOLLOW UP [facility] Referrals: Rosalino Plata DO [Staff Physician] - Byron Durant MD [Family Provider] - Disposition: [facility] - Home Medications Comprehensive Discharge Medication List: Ambulatory Orders Levothyroxine [Synthroid -] 100 mcg PO DAILY 11/20/19 Prescription Drug Monitoring Program (I-STOP) results: I-STOP not reviewed
[2019-11-22 14:43] VITALS: BP 144/76; PULSE 96; TEMP 98.5
== END 2019-11-22 15:45 | disposition home health service (06) | DRG 494 ==
LOC: FER 19:40 → FM/S 23:34 → UNDOADMIN 11-21 00:24 → FM/S 11-21 00:24 → J6S 11-21 11:39
PROVIDERS: ADMIT Internal Medicine; ATTEND Family Medicine
PROC: 0QSJ04Z Reposition Right Fibula with Internal Fixation Device, Open Approach (ICD-10-PCS; principal; 2019-11-21 16:00)
DX: S82.851A Displaced trimalleolar fracture of right lower leg, initial encounter for closed fracture (principal); W18.39XA Other fall on same level, initial encounter; Y92.89 Other specified places as the place of occurrence of the external cause; E03.9 Hypothyroidism, unspecified; E78.5 Hyperlipidemia, unspecified
CPT/HCPCS: 36415; 73610-TC-RT-FY; 76000-TC-FY; 80053; 81003; 81015; 83735; 84100; 85025; 85027; 85610; 86850; 86900; 86901; 93005; 94010; 94760; 97116-GP; 97162-GP; 99285-25; C9803; J0131; U0003